=== PATIENT | female | born 1930 | race Caucasian/White ===

== ENCOUNTER 2021-10-01 13:05 | Emergency (ER) | payer OTHER ==
[2021-10-01 14:22] LABS: Absolute Lymphocytes (CBC) 0.7 K/uL (0.7-4.9); Hematocrit 39.6 % (36.0-45.0); Lymphocytes % 14.7 % (15.3-44.8); RBC Red Blood Cell Count 4.81 M/uL (3.86-4.86)
--- NOTE | 2021-10-01 14:25 | RAD REPORT ---
EXAM DESCRIPTION: CT - Stone Protocol - 10/01/2021 2:11 pm CLINICAL HISTORY: Flank pain. Left flank pain COMPARISON: CT ABDOMEN PELVIS WO CONTRAST dated 11/08/2014 TECHNIQUE: Axial images were obtained without oral or IV contrast. Lack of contrast limits solid org an and vascular assessment. The [id number] spans the entirety of the system partially obscuring uppermost abdomen and lung bases. Coronal reformatted images were obtained and reviewed. All CT scans are performed using dose optimization technique as appropriate and may include automated exposure control or mA/KV adjustment according to patient size. FINDINGS: The lower lung nielson are emphysematous with linear atelectasis in both posterior lung bas es. A pericardial effusion is seen moderate in size. Trace left pleural effusion. Imaged portions of the liver and spleen show no suspicious findings on non-contrast imaging. The panc reas and adrenal glands are normal. No pathologic lymphadenopathy in the abdomen or pelvis. No urinary tract stones or obstructive uropathy. No bowel obstruction, free air, free fluid or abscess. Significant stool is present in the rectosigmo id colon with diverticulosis coli noted. 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 IMPRESSION: No urinary tract stones or obstructive uropathy. Moderate stool is present in the rectosigmoid colon with diverticulosis coli. Moderate pericardial effusion.
[2021-10-01 14:26] LABS: Albumin 2.6 g/dL (3.4-5.0); Bilirubin Total 0.4 mg/dL (0.2-1.0); Protein, Total 7.4 g/dL (6.4-8.2)
[2021-10-01 14:27] LABS: Potassium 3.9 mmol/L (3.5-5.1)
[2021-10-01] MEDS ORDERED: NA CHLORIDE 0.9% 500 ML ONE (15:17)
[2021-10-01] MEDS ORDERED: POLYETHYL GLY 3350 17 GM/DOSE ONE (15:36)
[2021-10-01 16:19] LABS: Urine Blood Trace-intact (Negative); Urine Glucose Negative (Negative); Urine Protein 1+ (Negative); Urine Specific Gravity >=1.030 (1.005-1.030)
[2021-10-01] MEDS ORDERED: NA CHLORIDE 0.9% 0 ML ONE (17:29)
[2021-10-01] MEDS ORDERED: CEFTRIAXONE 1000 MG/VIAL ONE ×2 (17:29→17:35)
[2021-10-01] MEDS ORDERED: LIDOCAINE 1% MPF 2 ML AMPULE ONE (17:35)
--- NOTE | 2021-10-01 18:22 | EDPHYS ---
Physician Documentation [facility] Name: Reji Rogers Age: 89 yrs Sex: Female : 1930 Arrival Date: 10/01/2021 Time: 13:10 Bed 18 Private MD: ED Physician Herbie Michelle HPI: 10/01 17:54 This 89 yrs old Female presents to ER via EMS with complaints of Abdominal Pain. kdr 17:54 The patient complains of pain in the . The patient complains of pain in the Left flank kdr pain. The pain does not radiate. 17:55 Onset: The symptoms/episode began/occurred gradually, 5 day(s) ago. Modifying factors: kdr The symptoms are alleviated by nothing. the symptoms are aggravated by nothing. 18:30 Associated signs and symptoms: Pertinent positives: diarrhea, Constipation. Severity of kdr pain: At its worst the pain was mild in the emergency department the pain. Please follow-up with [facility] either today or tomorrow to have patient was sent to the ED for evaluation of her left flank pain and left upper quadrant pain. This is been going on for about 5 days now. Does not seem to be getting especially worse or better at this time. It is reported that her pain is causing her to have difficulty with her daily activities. On my initial evaluation the patient is alert and responsive to questions. She answers questions appropriately though her speech is somewhat measured and slow. She is otherwise stable in the ED and does not appear toxic or acutely ill. He does appear to be slightly dry and dehydrated.. Historical: - Allergies: 13:13 Vancomycin; ap3 - Home Meds: 13:13 None [Active]; ap3 - PMHx: 13:13 None; ap3 - PSHx: 13:13 None; ap3 - Immunization history:: Adult Immunizations up to date, Client reports receiving the 2nd dose of the Covid vaccine, Flu vaccine is up to date. - Social history:: Smoking status: Patient denies any tobacco usage or history of. ROS: 10/02 07:30 Constitutional: Negative for fever, chills, and weight loss, Eyes: Negative for injury, kdr pain, redness, and discharge, ENT: Negative for injury, pain, and discharge, Neck: Negative for injury, pain, and swelling, Cardiovascular: Negative for chest pain, palpitations, and edema, Respiratory: Negative for shortness of breath, cough, wheezing, and pleuritic chest pain, Back: Negative for injury and pain, : Negative for injury, bleeding, discharge, and swelling, MS/Extremity: Negative for injury and deformity, Skin: Negative for injury, rash, and discoloration, Neuro: Negative for headache, weakness, numbness, tingling, and seizure activity. Psych: Negative for depression, anxiety, suicide ideation, homicidal ideation, and hallucinations, Allergy/Immunology: Negative for hives, rash, and allergies, Endocrine: Negative for neck swelling, polydipsia, polyuria, polyphagia, and marked weight changes, Hematologic/Lymphatic: Negative for swollen nodes, abnormal bleeding, and unusual bruising. Abdomen/GI: Positive for abdominal pain, of the anterior aspect of left lateral abdomen. Exam: 07:30 Constitutional: This is a well developed, well nourished patient who is awake, alert, kdr and in no acute distress. Head/Face: Normocephalic, atraumatic. Eyes: Pupils equal round and reactive to light, extra-ocular motions intact. Lids and lashes normal. Conjunctiva and sclera are non-icteric and not injected. Cornea within normal limits. Periorbital areas with no swelling, redness, or edema. Neck: Trachea midline, no thyromegaly or masses palpated, and no cervical lymphadenopathy. Supple, full range of motion without nuchal rigidity, or vertebral point tenderness. No Meningismus. Chest/axilla: Normal chest wall appearance and motion. Nontender with no deformity. No lesions are appreciated. Cardiovascular: Regular rate and rhythm with a normal S1 and S2. No gallops, murmurs, or rubs. Normal PMI, no JVD. No pulse deficits. Respiratory: Lungs have equal breath sounds bilaterally, clear to auscultation and percussion. No rales, rhonchi or wheezes noted. No increased work of breathing, no retractions or nasal flaring. Back: No spinal tenderness. No costovertebral tenderness. Full range of motion. Skin: Warm, dry with normal turgor. Normal color with no rashes, no lesions, and no evidence of cellulitis. MS/ Extremity: Pulses equal, no cyanosis. Neurovascular intact. Full, normal range of motion. Neuro: Awake and alert, GCS 15, oriented to person, place, time, and situation. Cranial nerves II-XII grossly intact. Motor strength 5/5 in all extremities. Sensory grossly intact. Cerebellar exam normal. Normal gait. Psych: Awake, alert, with orientation to person, place and time. Behavior, mood, and affect are within normal limits. 07:30 Abdomen/GI: Inspection: abdomen appears normal, Bowel sounds: normal, Palpation: soft, mild abdominal tenderness, in the anterior aspect of left lateral abdomen, mass, is not appreciated, rebound tenderness, is not appreciated. Vital Signs: 10/01 13:10 BP 129 / 60 LA (auto/); Pulse 82; Resp 18; Temp 98.1; Pulse Ox 98% ; Weight 49.9 kg; ap3 Height 5 ft. 2 in. (157.48 cm); Pain 5/10; 15:22 Pulse 81; Pulse Ox 98% ; ap3 16:24 BP 136 / 62; Pulse 94; Resp 20; Pulse Ox 97% on R/A; vg1 19:38 BP 136 / 69; Pulse 86; Resp 16 S; Pulse Ox 96% on R/A; bb 13:10 Body Mass Index 20.12 (49.90 kg, 157.48 cm) ap3 MDM: 18:21 Patient medically screened. kdr 10/02 07:30 Data reviewed: vital signs, nurses notes, lab test result(s), radiologic studies. kdr Counseling: I had a detailed discussion with the patient and/or guardian regarding: the historical points, exam findings, and any diagnostic results supporting the discharge/admit diagnosis, lab results, radiology results, the need for outpatient follow up. 10/01 13:28 Order name: CBC with Diff; Complete Time: 15:02 kdr 10/01 13:28 Order name: CMP; Complete Time: 15:02 kdr 10/01 13:28 Order name: Lipase; Complete Time: 15:02 kdr 10/01 13:28 Order name: CT Stone Protocol; Complete Time: 15:02 kdr 10/01 16:20 Order name: Urine Dipstick-Ancillary; Complete Time: 17:04 EDLA 10/01 13:28 Order name: IV Saline Lock; Complete Time: 13:48 kdr 10/01 13:28 Order name: Labs collected and sent; Complete Time: 13:48 kdr 10/01 13:28 Order name: Urine Dipstick-Ancillary (obtain specimen); Complete Time: 16:20 kdr Administered Medications: 10/01 15:49 Drug: Miralax (polyethylene glycol) 17 grams Route: PO; ap3 17:00 Follow up: Response: No adverse reaction ap3 15:49 Drug: NS 0.9% 500 ml Route: IV; Rate: bolus; Site: left forearm; ap3 17:44 Not Given (Physician Discretion): Rocephin - (cefTRIAXone) 1 grams IVPB once over 30 aa5 mins; (mix in 50 mL NS) 17:45 Drug: Rocephin (cefTRIAXone) 1 grams Route: IM; Site: right gluteus; aa5 Disposition Summary: 10/01/21 18:21 Discharge Ordered Location: Home kdr Problem: new kdr Symptoms: have improved kdr Condition: Stable kdr Diagnosis - Abdominal pain, left flank pain, urinary tract infection kdr Followup: kdr - With: Private Physician - When: 2 - 3 days - Reason: If symptoms return, Further diagnostic work-up, Recheck today's complaints, Continuance of care, Re-evaluation by your physician Discharge Instructions: - Discharge Summary Sheet kdr - Urinary Tract Infection, Adult, [id number] kdr - Abdominal Pain, Adult, [id number] kdr Forms: - Medication Reconciliation Form kdr - Thank You Letter kdr Prescriptions: - Macrobid 100 mg Oral Capsule - take 1 capsule by ORAL route every 12 hours for 7 days; 14 capsule; Refills: 0, kdr Product Selection Permitted Signatures: Dispatcher [employer] Herbie Elder MD MD kdr Trinh Bianchi RN RN aa5 Jazmyne Allan RN RN ap3 Corrections: (The following items were deleted from the chart) 18:01 17:54 The patient complains of pain in the Right flank pain, kdr kdr
--- NOTE | 2021-10-01 18:22 | ER ---
Nurse's Notes [facility] Name: Reji Rogers Age: 89 yrs Sex: Female : 1930 Arrival Date: 10/01/2021 Time: 13:10 Bed 18 Private MD: Diagnosis: Abdominal pain, left flank pain, urinary tract infection Presentation: 10/01 13:10 Chief complaint: EMS states: the patient has been having left upper quadrant pain for ap3 approx 5 days now. However patient is here to be evaluated due to increase in pain causing her to have difficulty with her ADL's. Coronavirus screen: At this time, the client does not indicate any symptoms associated with coronavirus-19. Ebola Screen: No symptoms or risks identified at this time. Initial Sepsis Screen: Does the patient meet any 2 criteria? No. Patient's initial sepsis screen is negative. Does the patient have a suspected source of infection? No. Patient's initial sepsis screen is negative. Risk Assessment: Do you want to hurt yourself or someone else? Patient reports no desire to harm self or others. Onset of symptoms was September 26, 2021. 13:10 Method Of Arrival: EMS: [facility] ap3 13:10 Acuity: JUSTIN 3 ap3 Triage Assessment: 13:14 General: Appears in no apparent distress. slender, Behavior is calm, cooperative. Pain: ap3 Complains of pain in left upper quadrant Pain does not radiate. Pain currently is 5 out of 10 on a pain scale. Quality of pain is described as sharp, Pain began gradually, approx 5 days ago. Neuro: Level of Consciousness is awake, alert, obeys commands, Oriented to person, place, time, situation, Speech is normal. Cardiovascular: Patient's skin is warm and dry. Respiratory: Airway is patent Respiratory effort is even, unlabored. GI: Abdomen is flat, non-distended, Last BM was September 29, 2021. : No signs and/or symptoms were reported regarding the genitourinary system. Derm: No signs and/or symptoms reported regarding the dermatologic system. Historical: - Allergies: 13:13 Vancomycin; ap3 - Home Meds: 13:13 None [Active]; ap3 - PMHx: 13:13 None; ap3 - PSHx: 13:13 None; ap3 - Immunization history:: Adult Immunizations up to date, Client reports receiving the 2nd dose of the Covid vaccine, Flu vaccine is up to date. - Social history:: Smoking status: Patient denies any tobacco usage or history of. Screenin:13 Abuse screen: Denies threats or abuse. Nutritional screening: No deficits noted. ap3 Tuberculosis screening: No symptoms or risk factors identified. Fall Risk No fall in past 12 months (0 pts). No secondary diagnosis (0 pts). No IV (0 pts). Ambulatory Aid- None/Bed Rest/Nurse Assist (0 pts). Gait- Weak (10 pts.). Mental Status- Oriented to own ability (0 pts). Assessment: 15:22 Reassessment: Patient and/or family updated on plan of care and expected duration. Pain ap3 level reassessed. Patient is alert, oriented x 3, equal unlabored respirations, skin warm/dry/pink. 16:24 Reassessment: Patient appears in no apparent distress at this time. Patient and/or vg1 family updated on plan of care and expected duration. Pain level reassessed. Patient is alert, oriented x 3, equal unlabored respirations, skin warm/dry/pink. 19:37 Reassessment: pt seen by this RN at discharge pt is alert and oriented x 3, resp bb unlabored, family verbalized understanding of and agrees to plan of care discharge instructions given pt assisted by this RN to exit via wheelchair accompanied by family. Vital Signs: 13:10 BP 129 / 60 LA (auto/); Pulse 82; Resp 18; Temp 98.1; Pulse Ox 98% ; Weight 49.9 kg; ap3 Height 5 ft. 2 in. (157.48 cm); Pain 5/10; 15:22 Pulse 81; Pulse Ox 98% ; ap3 16:24 BP 136 / 62; Pulse 94; Resp 20; Pulse Ox 97% on R/A; vg1 19:38 BP 136 / 69; Pulse 86; Resp 16 S; Pulse Ox 96% on R/A; bb 13:10 Body Mass Index 20.12 (49.90 kg, 157.48 cm) ap3 ED Course: 13:10 Patient arrived in ED. ap3 13:12 Herbie Michelle MD is Attending Physician. kdr 13:13 Triage completed. ap3 13:15 Arm band placed on right wrist. ap3 13:15 Patient has correct armband on for positive identification. Bed in low position. Call ap3 light in reach. Side rails up X2. Pulse ox on. NIBP on. Door closed. Noise minimized. 13:28 Jazmyne Allan, RN is Primary Nurse. ap3 14:14 CT Stone Protocol In Process Unspecified. EDMS 16:25 Straight cath inserted, using sterile technique, Specimen obtained. 8F Returned clear vg1 yellow urine. Patient tolerated well. Completed by Jazmyne LARSEN. 17:44 IV discontinued, intact, bleeding controlled, Pressure dressing applied, IV was dc'd aa5 after flushing with 5cc NS and swelling was noted. IV antibiotics were changed to IM per Dr. Michelle. 19:39 No provider procedures requiring assistance completed. IV discontinued, intact, bb bleeding controlled, No redness/swelling at site. Pressure dressing applied. Administered Medications: 15:49 Drug: Miralax (polyethylene glycol) 17 grams Route: PO; ap3 17:00 Follow up: Response: No adverse reaction ap3 15:49 Drug: NS 0.9% 500 ml Route: IV; Rate: bolus; Site: left forearm; ap3 17:44 Not Given (Physician Discretion): Rocephin - (cefTRIAXone) 1 grams IVPB once over 30 aa5 mins; (mix in 50 mL NS) 17:45 Drug: Rocephin (cefTRIAXone) 1 grams Route: IM; Site: right gluteus; aa5 Outcome: 18:21 Discharge ordered by MD. kdr 19:39 Discharged to home via wheelchair, with family. bb 19:39 Condition: stable 19:39 Discharge instructions given to patient, family, Instructed on discharge instructions, follow up and referral plans. medication usage, Demonstrated understanding of instructions, follow-up care, medications. 19:40 Patient left the ED. bb Signatures: Dispatcher [employer] EDUT Herbie Michelle MD MD kdr Ballard, Brenda RN RN bb Trinh Bianchi, RN RN aa5 Jazmyne Allan, RN RN ken3 Mai Grey, RN RN vg1 Corrections: (The following items were deleted from the chart) 17:46 17:45 Rocephin (cefTRIAXone) 1 grams IM in right deltoid aa5 aa5
[2021-10-02 03:37] VITALS: TEMP 98.1
[2021-10-02 03:42] VITALS: BP 136/69; O2SAT 96
== END 2021-10-01 19:40 | disposition home or self-care (01) ==
LOC: ER 13:05
DX: N39.0 Urinary tract infection, site not specified (principal)
CPT/HCPCS: 85025; 36415; 81003; 83690; 80053; 76377; 74176; 51702; 96372; 99284; J7040